=== PATIENT | female | born 1970 | race Caucasian/White ===

== ENCOUNTER 2019-11-12 17:47 | Emergency (ER) | payer SELFPAY ==
[~2019-11-12] VITALS: Ht 165.1 cm; Wt 45.4 kg
[~2019-11-12 17:47] MED LIST: ALPR0.5T PO; ONDA8TAB9 PO; OXYC-325 PO
[2019-11-12 17:58] VITALS: BP 137/76
[2019-11-12] MEDS ORDERED: LIDOCAINE 2% 20 ML VIAL. IJ STA (18:30)
--- NOTE | 2019-11-12 18:36 | PHYS DOC ---
Past Medical History Past Medical History: Anxiety, GERD, Pancreatitis (SELINA THOMPSON APRN) Past Surgical History: Tubal ligation, Other Additional Past Surgical Histo: RHINOPLASTY (SELINA THOMPSON APRN) Alcohol Use: Heavy Drug Use: None (SELINA THOMPSON APRN) Attending Signature I have participated in the care of this patient and I have reviewed and agree with all pertinent clinical information above including history, exam, and recommendations. (CATALINA KITCHEN MD) Adult General Chief Complaint Chief Complaint: LACERATION/AVULSION HPI HPI Patient is a 49 year old female who presents with a laceration to the right web by the first digit. She states that this happened around 2 hours ago. The patient was not really sure that time. She states her last tetanus shot was 10 years ago. She states she was cutting potatoes and sliced her hand. (SELINA THOMPSON APRN) Review of Systems Review of Systems Constitutional: Denies fever or chills [] Eyes: Denies change in visual acuity, redness, or eye pain [] HENT: Denies nasal congestion or sore throat [] Respiratory: Denies cough or shortness of breath [] Cardiovascular: No additional information not addressed in HPI [] GI: Denies abdominal pain, nausea, vomiting, bloody stools or diarrhea [] : Denies dysuria or hematuria [] Musculoskeletal: Denies back pain or joint pain [] Integument: Laceration to the Right hand. Neurologic: Denies headache, focal weakness or sensory changes [] Endocrine: Denies polyuria or polydipsia [] Complete systems were reviewed and found to be within normal limits, except as documented in this note. (SELINA THOMSPON APRN) Current Medications Current Medications Current Medications Medications (Trade) Dose Ordered Sig/Alverto Start Time Stop Time Status Last Admin Dose Admin Diphtheria/ Tetanus/Acell Pertussis (Boostrix) 0.5 ml ONCE ONCE 11/12/19 19:15 11/12/19 19:16 DC 11/12/19 19:37 0.5 ML Lidocaine HCl 20 ml 1X STAT 11/12/19 18:30 11/12/19 18:34 DC 11/12/19 18:30 20 ML Neomycin/ Polymyxin/ Bacitracin (Triple Antibiotic Ointment) 1 pkt 1X ONCE 11/12/19 18:45 11/12/19 18:46 DC 11/12/19 18:45 1 PKT (CATALINA KITCHEN MD) Allergies Allergies Allergies Coded Allergies Type Severity Reaction Last Updated Verified Iodinated Contrast Media Allergy Severe 10/08/19 Yes Sulfa (Sulfonamide Antibiotics) Allergy Intermediate 10/08/19 Yes erythromycin base Allergy Intermediate 10/08/19 Yes tramadol Allergy Intermediate 11/13/19 Yes (CATALINA KITCHEN MD) Physical Exam Physical Exam Constitutional: Well developed, well nourished, no acute distress, non-toxic appearance. [] HENT: Normocephalic, atraumatic, bilateral external ears normal, oropharynx moist, no oral exudates, nose normal. [] Eyes: PERRLA, EOMI, conjunctiva normal, no discharge. [] Skin: Laceration to the the web between the 1st and 2nd digits of the hand. 2 cm in size. Neurologic: Alert and oriented X 3, normal motor function, normal sensory function, no focal deficits noted. [] Psychologic: Affect normal, judgement normal, mood normal. [] (SELINA THOMPSON APRN) Current Patient Data Vital Signs Vital Signs Date Time Temp Pulse Resp B/P (MAP) Pulse Ox O2 Delivery O2 Flow Rate FiO2 11/12/19 17:58 97.2 91 12 137/76 (96) 98 Room Air 97.2 (CATALINA KITCHEN MD) EKG EKG [] (SELINA THOMPSON APRN) Radiology/Procedures Radiology/Procedures Indication: Laceration to R dominguez between 1st and 2nd digit. Procedure: The patient was placed in the appropriate position and anesthesia around the 2% lidocaine. The area was then debrided with 210 mL of NS. The laceration was closed with 7, 4-0 Nylon sutures. The wound area was then dressed with dressing. Total repaired wound length: 2 cm The patient tolerated the procedure. Complications: none (SELINA THOMPSON APRN) Course & Med Decision Making Course & Med Decision Making Pertinent Labs and Imaging studies reviewed. (See chart for details) The patient has a laceration to the hand. Will order lidocaine and sew the wound. Will also give Tetanus. (SELINA THOMPSON APRN) Dragon Disclaimer Dragon Disclaimer This electronic medical record was generated, in whole or in part, using a voice recognition dictation system. (SELINA THOMPSON APRN) Departure Departure Impression: Primary Impression: Laceration Disposition: 01 HOME, SELF-CARE Condition: STABLE Referrals: UNKNOWN PCP NAME (PCP) Patient Instructions: Laceration Care, Adult Additional Instructions: Thank you for visiting [facility]. We appreciate you trusting us with your care. If any additional problems come up don't hesitate to return to visit us. Please follow up with your primary care provider so they can plan additional care if needed and know about the problem that you had. If symptoms worsen come back to the Emergency Department. Any concerning symptoms that start such as chest pain, shortness of air, weakness or numbness on one side of the body, running high fevers or any other concerning symptoms return to the ER. Please keep your wound dry, especially for the first 24 hours. After the first 24 hours you can wet the wound for a short time. Do not soak the wound or swim until the sutures have been removed. Please have the sutures removed in 7-10 days by your primary care doctor or return to ER for removal. Please keep the w ound clean and change your bandage at least twice per day. You can use Neosporin on the wound to help reduce the chance of infection. If you notice signs of infection such as drainage from the wound (Pus), redness, increased pain or swelling return to ER for treatment. SELINA THOMPSON APRN Nov 12, 2019 18:36 CATALINA KITCHEN MD Nov 14, 2019 02:50
[2019-11-12] MEDS ORDERED: NEOMY/BACITR/POLYMYXIN OINT PACKET. TP ONE (18:45)
[2019-11-12] MEDS ORDERED: DIPHTH,PERTUSS(ACELL),TET TOX 0.5 ML DISP.SYRIN. VAX IM ONE (19:15)
[2019-11-13] MEDS ORDERED: ACET-704 PO (09:04)
[2019-11-13] MEDS ORDERED: VENTOLIN HFA18 GM INH (09:20)
== END 2019-11-12 20:14 | disposition home or self-care (01) ==
LOC: ER 17:47
DX: S61.411A Laceration without foreign body of right hand, initial encounter (principal); F41.9 Anxiety disorder, unspecified; K21.9 Gastro-esophageal reflux disease without esophagitis; Z98.51 Tubal ligation status; F10.10 Alcohol abuse, uncomplicated; Z98.890 Other specified postprocedural states; Z88.2 Allergy status to sulfonamides; Z91.041 Radiographic dye allergy status; Z88.1 Allergy status to other antibiotic agents; Z88.6 Allergy status to analgesic agent; W27.8XXA Contact with other nonpowered hand tool, initial encounter; Y93.G9 Activity, other involving cooking and grilling; Y92.89 Other specified places as the place of occurrence of the external cause; Y99.8 Other external cause status
CPT/HCPCS: 12001; 90471; 90715; 99283; J2001

== ENCOUNTER 2019-11-13 07:23 | Emergency (ER) | payer SELFPAY ==
[~2019-11-13] VITALS: Ht 165.1 cm; Wt 46.9 kg
[2019-11-13] MEDS ORDERED: HYDROcodone/APAP 5/325MG 1 TAB TABLET PO ONE (08:45)
[2019-11-13 09:00] VITALS: BP 121/80
[2019-11-13] MEDS ORDERED: ACET-704 PO (09:04)
--- NOTE | 2019-11-13 09:04 | PHYS DOC ---
Past Medical History Past Medical History: Anxiety, GERD, Pancreatitis Past Surgical History: Tubal ligation, Other Additional Past Surgical Histo: RHINOPLASTY Alcohol Use: Heavy Drug Use: None Adult General Chief Complaint Chief Complaint: ASTHMA HPI HPI Patient is a 49 year old female patient with history of anxiety and GERD who presents with complaint of shortness of breath and hand pain. Patient was seen in this emergency room stay Kristopher laceration repair of left hand and states she has had pain in her hand and rated her pain as a severe pain and states she did not have prescription of pain medication. Patient also complaining of shortness of breath since 3 am today and states she ran out of her inhaler for one month and needs prescription of inhaler. Patient denies fever and chills, chest pain, sick contact. Review of Systems Review of Systems Constitutional: Denies fever or chills [] Eyes: Denies change in visual acuity, redness, or eye pain [] HENT: Denies nasal congestion or sore throat [] Respiratory: Denies cough reports shortness of breath [] Cardiovascular: No additional information not addressed in HPI [] GI: Denies abdominal pain, nausea, vomiting, bloody stools or diarrhea [] : Denies dysuria or hematuria [] Musculoskeletal: Denies back pain, reports joint pain [] Integument: Denies rash or skin lesions [] Neurologic: Denies headache, focal weakness or sensory changes [] Endocrine: Denies polyuria or polydipsia [] All other systems were reviewed and found to be within normal limits, except as documented in this note. Current Medications Current Medications Current Medications Medications (Trade) Dose Ordered Sig/[facility] Start Time Stop Time Status Last Admin Dose Admin Acetaminophen/ Hydrocodone Bitart (Lortab 5/325) 1 tab 1X ONCE 11/13/19 08:45 11/13/19 09:13 DC 11/13/19 09:07 1 TAB Allergies Allergies Allergies Coded Allergies Type Severity Reaction Last Updated Verified Iodinated Contrast Media Allergy Severe 10/08/19 Yes Sulfa (Sulfonamide Antibiotics) Allergy Intermediate 10/08/19 Yes erythromycin base Allergy Intermediate 10/08/19 Yes tramadol Allergy Intermediate 11/13/19 Yes Physical Exam Physical Exam Constitutional: Well developed, well nourished, mild distress, non-toxic appearance, anxious. [] HENT: Normocephalic, atraumatic. Eyes: PERRLA, EOMI, conjunctiva normal, no discharge. [] Neck: Normal range of motion, no tenderness, supple, no stridor. [] Cardiovascular:Heart rate regular rhythm, no murmur [] Lungs & Thorax: Bilateral breath sounds clear to auscultation [] Extremities: Left hand with suture placement in between first and second fingers web without sign of infection or discharge or tenderness. Neurologic: Alert and oriented X 3, no focal deficits noted. [] Psychologic: Affect anxious, judgement normal, mood normal. [] Current Patient Data Vital Signs Vital Signs Date Time Temp Pulse Resp B/P (MAP) Pulse Ox O2 Delivery O2 Flow Rate FiO2 11/13/19 09:07 20 95 Room Air 11/13/19 07:57 97.8 79 125/77 (93) 97.8 EKG EKG [] Radiology/Procedures Radiology/Procedures [] Course & Med Decision Making Course & Med Decision Making discharge: I've spoken with the patient and/or caregivers. I've explained the patient's condition, diagnosis and treatment plan based on information available to me at this time. I've answered the patient's and/or caregivers questions and addressed any concerns. The patient and/or caregivers have a good understanding the patient's diagnosis, condition and treatment plan as can be expected at this point. Vital signs have been stabilized. The patient's condition is stable for discharge from the emergency department. The patient will pursue further outpatient evaluation with her primary care provider or other designated consulting physician as outlined in the discharge instructions. Patient and/or caregivers are agreeable to this plan of care and follow-up instructions have been explained in detail. The patient and/or caregivers have received these instructions in written format and expressed understanding of these discharge instructions. The patient and her caregivers are aware that if any significant change in condition or worsening of symptoms should prompt him to immediately return to this of the closest emergency department. If an emergent department is not readily available I would encourage him to call 911. Anthony Disclaimer Anthony Disclaimer This electronic medical record was generated, in whole or in part, using a voice recognition dictation system. Departure Departure Impression: Primary Impression: Medication refill Additional Impressions: Asthma Pain from laceration Disposition: HOME, SELF-CARE (at 0902) Condition: IMPROVED Referrals: NO PCP (PCP) Patient Instructions: Medication Refill, Emergency Department, Sutured Wound Care Additional Instructions: Keep wound clean and dry Follow-up with your primary care physician in 3-5 days Return to ER if not getting better Thank you for visiting [facility]. We appreciate you trusting us with your care. If any additional problems come up don't hesitate to return to visit us. Please follow up with your primary care provider so they can plan additional care if needed and know about the problem that you had. If symptoms worsen come back to the Emergency Department. Any concerning symptoms that start such as chest pain, shortness of air, weakness or numbness on one side of the body, running high fevers or any other concerning symptoms return to the ER. Scripts Albuterol Sulfate (VENTOLIN HFA INHALER) 18 Gm Hfa.aer.ad 2 PUFF INH QID for FOR ASTHMA, #1 INHALER 0 Refills Prov: ANDREW CHRISTENSEN MD 11/13/19 Acetaminophen With Codeine (TYLENOL WITH CODEINE #3 TABLET) 1 Each Tablet 1 TAB PO PRN Q6HRS PRN for PAIN, #10 TAB Prov: ANDREW CHRISTENSEN MD 11/13/19 Problem Qualifiers Additional Impressions: Asthma Asthma severity: mild Asthma persistence: unspecified Asthma complication type: uncomplicated Qualified Codes: J45.909 - Unspecified asthma, uncomplicated ANDREW CHRISTENSEN MD Nov 13, 2019 09:04
[2019-11-13] MEDS ORDERED: VENTOLIN HFA18 GM INH (09:20)
== END 2019-11-13 09:16 | disposition home or self-care (01) ==
LOC: ER 07:23
DX: J45.909 Unspecified asthma, uncomplicated (principal); M79.602 Pain in left arm; Z76.0 Encounter for issue of repeat prescription; K21.9 Gastro-esophageal reflux disease without esophagitis; Z88.1 Allergy status to other antibiotic agents; Z88.2 Allergy status to sulfonamides; Z91.041 Radiographic dye allergy status; Z88.6 Allergy status to analgesic agent
CPT/HCPCS: 99283

== ENCOUNTER 2020-01-08 13:20 | Emergency (ER) | payer SELFPAY ==
[~2020-01-08] VITALS: Ht 172.7 cm; Wt 46.8 kg
[~2020-01-08 13:20] MED LIST changes: +ACET-704 PO; +VENTOLIN HFA18 GM INH
--- NOTE | 2020-01-08 13:50 | PHYS DOC ---
Past Medical History Past Medical History: Anxiety, GERD, Pancreatitis Past Surgical History: Tubal ligation, Other Additional Past Surgical Histo: RHINOPLASTY Smoking Status: Current Every Day Smoker Alcohol Use: Heavy Drug Use: None Adult General Chief Complaint Chief Complaint: COUGH HPI HPI Patient is a 49 year old female with reported history of atrial fibrillation an d chronic pancreatitis presents secondary to complaint of cough and right-sided chest pain that is worse with inspiration for the past 2 days. Reported temperature at home of 101.5. She is afebrile in the emergency department. No medications taken prior to arrival. Multiple sick contacts at home with similar symptoms and her boyfriend was recently hospitalized yesterday with pneumonia. No overseas travel recently. Review of Systems Review of Systems All other ROS is negative unless otherwise stated in HPI Current Medications Current Medications Current Medications Medications (Trade) Dose Ordered Sig/Alverto Start Time Stop Time Status Last Admin Dose Admin Ketorolac Tromethamine (Toradol Im) 30 mg 1X ONCE 01/08/20 14:30 01/08/20 14:31 DC 01/08/20 14:22 30 MG Levofloxacin (Levaquin) 750 mg 1X ONCE 01/08/20 15:00 01/08/20 15:01 UNV Sodium Chloride 1,000 ml @ 1,000 mls/hr 1X ONCE 01/08/20 14:00 01/08/20 14:59 01/08/20 14:14 1,000 MLS/HR Allergies Allergies Allergies Coded Allergies Type Severity Reaction Last Updated Verified Iodinated Contrast Media Allergy Severe 10/08/19 Yes Sulfa (Sulfonamide Antibiotics) Allergy Intermediate 10/08/19 Yes erythromycin base Allergy Intermediate 10/08/19 Yes tramadol Allergy Intermediate 11/13/19 Yes Physical Exam Physical Exam See above Constitutional: Well developed, well nourished, no acute distress, non-toxic appearance. [] HENT: Normocephalic, atraumatic, bilateral external ears normal, oropharynx moist, no oral exudates, nose normal. [] Eyes: PERRLA, EOMI, conjunctiva normal, no discharge. [] Neck: Normal range of motion, no tenderness, supple, no stridor. [] Cardiovascular:Heart rate regular rhythm, no murmur [] Lungs & Thorax: Bilateral breath sounds clear to auscultation some reproducible tenderness to palpation of the right anterior chest wall. Abdomen: Bowel sounds normal, soft, no tenderness, no masses, no pulsatile masses. [] Skin: Warm, dry, no erythema, no rash. [] Back: No tenderness, no CVA tenderness. [] Extremities: No tenderness, no cyanosis, no clubbing, ROM intact, no edema. [] Neurologic: Alert and oriented X 3, normal motor function, normal sensory function, no focal deficits noted. [] Psychologic: Affect normal, judgement normal, mood normal. [] Current Patient Data Vital Signs Vital Signs Date Time Temp Pulse Resp B/P (MAP) Pulse Ox O2 Delivery O2 Flow Rate FiO2 01/08/20 13:33 97.8 89 22 146/85 (105) 100 Room Air 97.8 Lab Values Laboratory Tests Test 01/08/20 13:40 White Blood Count 12.2 x10^3/uL (4.0-11.0) H Red Blood Count 3.82 x10^6/uL (3.50-5.40) Hemoglobin 12.9 g/dL (12.0-15.5) Hematocrit 38.7 % (36.0-47.0) Mean Corpuscular Volume 101 fL (79-100) H Mean Corpuscular Hemoglobin 34 pg (25-35) Mean Corpuscular Hemoglobin Concent 33 g/dL (31-37) Red Cell Distribution Width 13.9 % (11.5-14.5) Platelet Count 165 x10^3/uL (140-400) Neutrophils (%) (Auto) 80 % (31-73) H Lymphocytes (%) (Auto) 5 % (24-48) L Monocytes (%) (Auto) 14 % (0-9) H Eosinophils (%) (Auto) 0 % (0-3) Basophils (%) (Auto) 1 % (0-3) Neutrophils # (Auto) 9.8 x10^3/uL (1.8-7.7) H Lymphocytes # (Auto) 0.6 x10^3/uL (1.0-4.8) L Monocytes # (Auto) 1.8 x10^3/uL (0.0-1.1) H Eosinophils # (Auto) 0.0 x10^3/uL (0.0-0.7) Basophils # (Auto) 0.1 x10^3/uL (0.0-0.2) Sodium Level 132 mmol/L (136-145) L Potassium Level 3.6 mmol/L (3.5-5.1) Chloride Level 95 mmol/L (98-107) L Carbon Dioxide Level 28 mmol/L (21-32) Anion Gap 9 (6-14) Blood Urea Nitrogen 13 mg/dL (7-20) Creatinine 0.7 mg/dL (0.6-1.0) Estimated GFR (Cockcroft-Gault) 88.2 BUN/Creatinine Ratio 19 (6-20) Glucose Level 105 mg/dL (70-99) H Calcium Level 9.1 mg/dL (8.5-10.1) Total Bilirubin 1.3 mg/dL (0.2-1.0) H Aspartate Amino Transferase (AST) 57 U/L (15-37) H Alanine Aminotransferase (ALT) 26 U/L (14-59) Alkaline Phosphatase 168 U/L (46-116) H Troponin I Quantitative < 0.017 ng/mL (0.000-0.055) Total Protein 7.3 g/dL (6.4-8.2) Albumin 3.1 g/dL (3.4-5.0) L Albumin/Globulin Ratio 0.7 (1.0-1.7) L Lipase 32 U/L (73-393) L Influenza Type A Antigen Negative (NEGATIVE) Influenza Type B Antigen Negative (NEGATIVE) Laboratory Tests 01/08/20 13:40 Laboratory Tests 01/08/20 13:40 EKG EKG []Normal sinus rhythm without ST changes and normal intervals. Radiology/Procedures Radiology/Procedures CHEST PA LATERAL History: Chest pain Comparison: October 08, 2019 Findings: Right middle lobe consolidation. Small right pleural effusion. Normal heart size. Calcified left midlung granuloma, unchanged no pneumothorax. Impression: 1. Right middle lobe pneumonia. Recommend follow-up to ensure resolution. 2. Small right pleural effusion. [] Course & Med Decision Making Course & Med Decision Making Pertinent Labs and Imaging studies reviewed. (See chart for details) Patient Is seen for cough and right-sided chest pain. Her EKG is unremarkable. We will obtain chest x-ray and labs. I suspect she likely has either influenza or pneumonia or bronchitis. 1441: Patient's records complete and does reveal a right sided pneumonia. She has a small leukocytosis. The rest of her labs are stable. We'll start her on antibiotics and the patient is instructed to follow-up with her primary care physician next week for reevaluation. Anthony Disclaimer Anthony Disclaimer This electronic medical record was generated, in whole or in part, using a voice recognition dictation system. Departure Departure Impression: Primary Impression: Community acquired bacterial pneumonia Disposition: HOME, SELF-CARE Condition: STABLE Referrals: NO PCP (PCP) Patient Instructions: Pneumonia, Adult Additional Instructions: Please establish care with a physician from the list provided and follow-up within 1-2 weeks for reevaluation and resolution of pneumonia. Please take all of your antibiotic as prescribed. Scripts Hydrocodone/Apap 5-325 (NORCO 5-325 TABLET) 1 Each Tablet 1 TAB PO PRN Q6HRS PRN for PAIN, #10 TAB 0 Refills Prov: NICOLASA BYRD DO 01/08/20 Levofloxacin (LEVAQUIN) 750 Mg Tablet 1 TAB PO DAILY for 10 Days, #10 TAB 0 Refills Prov: NICOLASA BYRD DO 01/08/20 NICOLASA BYRD DO Jan 08, 2020 13:50
[2020-01-08 13:55] LABS: BASO # 0.1 x10^3/uL (0.0-0.2); BASO % 1 % (0-3); EOS % 0 % (0-3); HEMATOCRIT 38.7 % (36.0-47.0); HEMOGLOBIN 12.9 g/dL (12.0-15.5); LYMPH # 0.6 x10^3/uL (1.0-4.8); LYMPH % 5 % (24-48); MEAN CORPUSCULAR HEMOGLOBIN 34 pg (25-35); MEAN CORPUSCULAR HGB CONC 33 g/dL (31-37); MEAN CORPUSCULAR VOLUME 101 fL (79-100); MONO # 1.8 x10^3/uL (0.0-1.1); MONO % 14 % (0-9); NEUT # 9.8 x10^3/uL (1.8-7.7); NEUT % 80 % (31-73); PLATELET COUNT 165 x10^3/uL (140-400); RED BLOOD COUNT 3.82 x10^6/uL (3.50-5.40); RED CELL DISTRIBUTION WIDTH 13.9 % (11.5-14.5); WHITE BLOOD COUNT 12.2 x10^3/uL (4.0-11.0)
[2020-01-08] MEDS ORDERED: IV NORMAL SALINE 1000ML BAG 1,000 ML IV ONE (14:00)
[2020-01-08 14:06] VITALS: BP 159/74
[2020-01-08 14:10] LABS: CALCIUM 9.1 mg/dL (8.5-10.1); CREATININE 0.7 mg/dL (0.6-1.0); GFR 88.2; POTASSIUM 3.6 mmol/L (3.5-5.1)
[2020-01-08 14:16] LABS: ALBUMIN 3.1 g/dL (3.4-5.0); ALBUMIN/GLOBULIN RATIO 0.7 (1.0-1.7); TOTAL BILIRUBIN 1.3 mg/dL (0.2-1.0); TOTAL PROTEIN 7.3 g/dL (6.4-8.2)
[2020-01-08 14:25] LABS: INFLUENZA A PATIENT NEGATIVE (NEGATIVE); INFLUENZA B PATIENT NEGATIVE (NEGATIVE)
--- NOTE | 2020-01-08 14:26 | RAD ---
CHEST PA LATERAL History: Chest pain Comparison: October 08, 2019 Findings: Right middle lobe consolidation. Small right pleural effusion. Normal heart size. Calcified left midlung granuloma, unchanged no pneumothorax. Impression: 1. Right middle lobe pneumonia. Recommend follow-up to ensure resolution. 2. Small right pleural effusion. Electronically signed by: Ulises Copeland DO (01/08/2020 2:23 PM) [id number]
--- NOTE | 2020-01-08 14:29 | EKG ---
[facility] [address] [place] [address] Test Date: 2020-01-08 Test Time: 13:43:30 Pat Name: HUMPHREY DE LA CRUZ Department: Room: Gender: F Data Mining Analyst: : 1970 Requested By: NICOLASA BYRD Order Number: [id number] Reading MD: Measurements Intervals [place] Rate: 89 P: 41 VA: 152 QRS: 19 QRSD: 74 T: 46 QT: 368 QTc: 454 Interpretive Statements SINUS RHYTHM NORMAL ECG RI6.01 No previous ECG available for comparison
[2020-01-08] MEDS ORDERED: KETOROLAC 60 MG/2 ML VIAL. IM ONE (14:30)
[2020-01-08] MEDS ORDERED: LEVO750T31 PO (14:54)
[2020-01-08] MEDS ORDERED: HYDR-3164 PO (14:54)
== END 2020-01-08 15:05 | disposition home or self-care (01) ==
LOC: ER 13:20
DX: J15.8 Pneumonia due to other specified bacteria (principal); R07.89 Other chest pain; R05 Cough; F41.9 Anxiety disorder, unspecified; K21.9 Gastro-esophageal reflux disease without esophagitis; K86.1 Other chronic pancreatitis; F10.10 Alcohol abuse, uncomplicated; F17.200 Nicotine dependence, unspecified, uncomplicated; Z98.51 Tubal ligation status; Z98.890 Other specified postprocedural states; Z91.041 Radiographic dye allergy status; Z88.2 Allergy status to sulfonamides; Z88.1 Allergy status to other antibiotic agents; Z88.6 Allergy status to analgesic agent
CPT/HCPCS: 36415; 71046; 80053; 83690; 84484; 85025; 87804; 93005; 96372; 99285; J1885; J7030

== ENCOUNTER 2020-07-04 23:29 | Inpatient (IN) | payer SELFPAY ==
[~2020-07-04] VITALS: Ht 165.1 cm; Wt 49.5 kg
[~2020-07-04 23:29] MED LIST changes: +FOLI0.8C PO; +HYDR-3164 PO; +LACT1CAP19 PO; +LEVO750T31 PO; +METO25TA4 PO; +Nicotine 21MG TD; +OMEP40CA45 PO; +THIA100T57 PO
[2020-07-05] MEDS ORDERED: IV NORMAL SALINE 1000ML BAG 1,000 ML IV ONE
--- NOTE | 2020-07-05 00:20 | RAD ---
INDICATION: Reason: TACHYCARDIA / Spl. Instructions: / History: COMPARISON: March 11, 2020 FINDINGS: Single view of chest obtained. Calcified granuloma left lung. No new region of consolidation. Cardiac silhouette is similar to prior. IMPRESSION: * No focal airspace consolidation or edema. Electronically signed by: Mikael Adkins MD (07/05/2020 12:17 AM) [id number]
--- NOTE | 2020-07-05 00:41 | RAD ---
INDICATION: Reason: SEIZURE / Spl. Instructions: / History: COMPARISON: None. TECHNIQUE: Axial CT images obtained through the head without intravenous contrast. One or more of the following individualized dose reduction techniques were utilized for this examination: 1. Automated exposure control; 2. Adjustment of the mA and/or kV according to patient size; 3. Use of iterative reconstruction technique. FINDINGS: No intracranial hemorrhage. No midline shift. Basal cisterns patents. Ventricles and sulci are globally prominent. No acute osseous abnormality. Orbits and paranasal sinuses unremarkable. Scattered foci of low attenuation within the white matter. IMPRESSION: 1. No acute intracranial hemorrhage. 2. Scattered regions of low attenuation within the white matter. Non-specific in nature but frequently secondary to chronic small vessel ischemic disease. 3. Prominence of ventricles and sulci which is frequently secondary to age related volume loss. Electronically signed by: Mikael Adkins MD (07/05/2020 12:38 AM) [id number]
[2020-07-05 01:00] LABS: BASO % 1 % (0-3); EOS % 0 % (0-3); HEMATOCRIT 37.6 % (36.0-47.0); HEMOGLOBIN 12.6 g/dL (12.0-15.5); LYMPH % 15 % (24-48); MEAN CORPUSCULAR HEMOGLOBIN 33 pg (25-35); MEAN CORPUSCULAR HGB CONC 33 g/dL (31-37); MEAN CORPUSCULAR VOLUME 98 fL (79-100); MONO # 0.9 x10^3/uL (0.0-1.1); MONO % 13 % (0-9); NEUT # 4.7 x10^3/uL (1.8-7.7); NEUT % 71 % (31-73); PLATELET COUNT 59 x10^3/uL (140-400); RED BLOOD COUNT 3.85 x10^6/uL (3.50-5.40); RED CELL DISTRIBUTION WIDTH 14.6 % (11.5-14.5); WHITE BLOOD COUNT 6.6 x10^3/uL (4.0-11.0)
[2020-07-05 01:01] LABS: BILIRUBIN,URINE NEGATIVE (NEG); CLARITY,URINE CLEAR; COLOR,URINE AMBER; NITRITE,URINE NEGATIVE (NEG); PH,URINE 7.5 (<5.0-8.0); PROTEIN,URINE 100 mg/dL (NEG-TRACE)
[2020-07-05 01:07] LABS: BARBITURATES NEG (NEG); BENZODIAZEPINES POS (NEG); CANNABINOIDS NEG (NEG); COCAINE NEG (NEG); METHADONE NEG (NEG); OPIATES POS (NEG); PHENCYCLIDINE NEG (NEG)
[2020-07-05 01:08] LABS: CALCIUM 8.6 mg/dL (8.5-10.1); CREATININE 0.9 mg/dL (0.6-1.0); POTASSIUM 3.2 mmol/L (3.5-5.1)
[2020-07-05 01:09] LABS: PROTHROMBIN TIME PATIENT 13.1 SEC (11.7-14.0)
[2020-07-05 01:09] LABS: BACTERIA,URINE FEW /HPF (0-FEW); HYALINE CASTS, URINE FEW /HPF; SQUAMOUS EPITHELIAL CELL,UR MOD /LPF
[2020-07-05 01:12] LABS: AMPHETAMINE/METHAMPHETAMINE NEG (NEG)
[2020-07-05 01:13] LABS: ALBUMIN 3.7 g/dL (3.4-5.0); ALBUMIN/GLOBULIN RATIO 0.9 (1.0-1.7); TOTAL BILIRUBIN 2.9 mg/dL (0.2-1.0)
--- NOTE | 2020-07-05 01:25 | PHYS DOC ---
Past Medical History Past Medical History: Alcoholism, Anxiety, GERD, Pancreatitis Past Surgical History: Tubal ligation, Other Additional Past Surgical Histo: RHINOPLASTY Smoking Status: Current Every Day Smoker Alcohol Use: Heavy Drug Use: None General Adult EDM: Chief Complaint: SEIZURE HPI: HPI: Patient is a 49 year old female who presents with seizure. Patient is a daily drinker who reports that for the last 2 days she has been unable to drink any alcohol or even eat anything because of pain in her stomach. She describes the pain as a burning sensation that is nonradiating. It mostly is in the epigastrium, waxes and wanes, worse with alcohol and not associated with melena or hematochezia. Patient reports she has had nausea and vomiting with clear emesis, diarrhea with 2 watery green stools today. Patient reports no history of seizures in the past other than that associated with some dye she was given for CAT scan years ago. Patient currently denies chest pain or shortness of breath he does not feel well. Patient lost control of her urine, bowels but did not bite her tongue during this episode. The amount of time was about 2 minutes and it was generalized tonic-clonic in nature. Review of Systems: Review of Systems: Constitutional: Denies fever or chills. [] Eyes: Denies change in visual acuity. [] HENT: Denies nasal congestion or sore throat. [] Respiratory: Denies cough or shortness of breath. [] Cardiovascular: Denies chest pain or edema. [] GI: See HPI. [] : Denies dysuria. [] Musculoskeletal: Denies back pain or joint pain. [] Integument: Denies rash. [] Neurologic: Denies headache, focal weakness or sensory changes. [] Endocrine: Denies polyuria or polydipsia. [] Lymphatic: Denies swollen glands. [] Psychiatric: Denies depression or anxiety. [] Heart Score: Risk Factors: Risk Factors: DM, Current or recent (<one month) smoker, HTN, HLP, family history of CAD, obesity. Risk Scores: Score 0 - 3: 2.5% MACE over next 6 weeks - Discharge Home Score 4 - 6: 20.3% MACE over next 6 weeks - Admit for Clinical Observation Score 7 - 10: 72.7% MACE over next 6 weeks - Early Invasive Strategies Current Medications: Current Medications Medications (Trade) Dose Ordered Sig/Alverto Start Time Stop Time Status Last Admin Dose Admin Lorazepam (Ativan Inj) 2 mg STK-MED ONCE 07/05/20 01:18 07/05/20 01:18 DC Sodium Chloride 1,000 ml @ 1,000 mls/hr 1X ONCE 07/05/20 00:00 07/05/20 00:59 DC 07/05/20 00:28 1,000 MLS/HR Allergies: Allergies: Allergies Coded Allergies Type Severity Reaction Last Updated Verified Iodinated Contrast Media Allergy Severe 10/08/19 Yes Sulfa (Sulfonamide Antibiotics) Allergy Intermediate 10/08/19 Yes erythromycin base Allergy Intermediate 10/08/19 Yes tramadol Allergy Intermediate 11/13/19 Yes Physical Exam: PE: Constitutional: Well developed, cachectic, no acute distress, non-toxic appearance. [] HENT: Normocephalic, atraumatic, bilateral external ears normal, oropharynx moist, no oral exudates, nose normal. [] Eyes: PERRLA, EOMI, conjunctiva normal, no discharge. [] Neck: Normal range of motion, no tenderness, supple, no stridor. [] Cardiovascular: Regular rhythm, tachycardic, no S3 or S4, no murmur [] Lungs & Thorax: Bilateral breath sounds clear to auscultation [] Abdomen: Soft, positive bowel sounds, hypoactive, epigastric tenderness, no guarding or rebound, no hepatosplenomegaly, negative Rubi sign. [] Skin: Warm, dry, no erythema, no rash. [] Back: No tenderness, no CVA tenderness. [] Extremities: No tenderness, no cyanosis, no clubbing, ROM intact, no edema. [] Neurologic: Alert and oriented X 3, normal motor function, normal sensory function, no focal deficits noted. [] Psychologic: Affect flat, judgement normal, mood anxious. [] Current Patient Data: Labs: Laboratory Tests Test 07/05/20 00:38 07/05/20 00:52 White Blood Count 6.6 x10^3/uL (4.0-11.0) Red Blood Count 3.85 x10^6/uL (3.50-5.40) Hemoglobin 12.6 g/dL (12.0-15.5) Hematocrit 37.6 % (36.0-47.0) Mean Corpuscular Volume 98 fL (79-100) Mean Corpuscular Hemoglobin 33 pg (25-35) Mean Corpuscular Hemoglobin Concent 33 g/dL (31-37) Red Cell Distribution Width 14.6 % (11.5-14.5) H Platelet Count 59 x10^3/uL (140-400) L Neutrophils (%) (Auto) 71 % (31-73) Lymphocytes (%) (Auto) 15 % (24-48) L Monocytes (%) (Auto) 13 % (0-9) H Eosinophils (%) (Auto) 0 % (0-3) Basophils (%) (Auto) 1 % (0-3) Neutrophils # (Auto) 4.7 x10^3/uL (1.8-7.7) Lymphocytes # (Auto) 1.0 x10^3/uL (1.0-4.8) Monocytes # (Auto) 0.9 x10^3/uL (0.0-1.1) Eosinophils # (Auto) 0.0 x10^3/uL (0.0-0.7) Basophils # (Auto) 0.0 x10^3/uL (0.0-0.2) Prothrombin Time 13.1 SEC (11.7-14.0) Prothrombin Time INR 1.0 (0.8-1.1) Activated Partial Thromboplast Time 27 SEC (24-38) Sodium Level 136 mmol/L (136-145) Potassium Level 3.2 mmol/L (3.5-5.1) L Chloride Level 96 mmol/L (98-107) L Carbon Dioxide Level 31 mmol/L (21-32) Anion Gap 9 (6-14) Blood Urea Nitrogen 6 mg/dL (7-20) L Creatinine 0.9 mg/dL (0.6-1.0) Estimated GFR (Cockcroft-Gault) 66.0 BUN/Creatinine Ratio 7 (6-20) Glucose Level 116 mg/dL (70-99) H Lactic Acid Level 3.6 mmol/L (0.4-2.0) H Calcium Level 8.6 mg/dL (8.5-10.1) Total Bilirubin 2.9 mg/dL (0.2-1.0) H Aspartate Amino Transferase (AST) 91 U/L (15-37) H Alanine Aminotransferase (ALT) 20 U/L (14-59) Alkaline Phosphatase 112 U/L (46-116) Total Protein 8.0 g/dL (6.4-8.2) Albumin 3.7 g/dL (3.4-5.0) Albumin/Globulin Ratio 0.9 (1.0-1.7) L Ethyl Alcohol Level < 10 mg/dL (0-10) Urine Collection Type Unknown Urine Color Sandie Urine Clarity Clear Urine pH 7.5 (<5.0-8.0) Urine Specific [place] 1.015 (1.000-1.030) Urine Protein 100 mg/dL (NEG-TRACE) Urine Glucose (UA) 100 mg/dL (NEG) Urine Ketones (Stick) Trace mg/dL (NEG) Urine Blood Small (NEG) Urine Nitrite Negative (NEG) Urine Bilirubin Negative (NEG) Urine Urobilinogen Dipstick 1.0 mg/dL (0.2 mg/dL) Urine Leukocyte Esterase Negative (NEG) Urine RBC 6-10 /HPF (0-2) Urine WBC 1-4 /HPF (0-4) Urine Squamous Epithelial Cells Mod /LPF Urine Bacteria Few /HPF (0-FEW) Urine Hyaline Casts Few /HPF Urine Mucus Mod /LPF Urine Opiates Screen Pos (NEG) Urine Methadone Screen Neg (NEG) Urine Barbiturates Neg (NEG) Urine Phencyclidine Screen Neg (NEG) Urine Amphetamine/Methamphetamine Neg (NEG) Urine Benzodiazepines Screen Pos (NEG) Urine Cocaine Screen Neg (NEG) Urine Cannabinoids Screen Neg (NEG) Urine Ethyl Alcohol Neg (NEG) Laboratory Tests 07/05/20 00:38 Laboratory Tests 07/05/20 00:38 Vital Signs: Vital Signs Date Time Temp Pulse Resp B/P (MAP) Pulse Ox O2 Delivery O2 Flow Rate FiO2 07/05/20 00:52 155 20 100 07/04/20 23:34 98.1 166/114 (131) Room Air 98.1 EKG: EKG: Heart rate 149 bpm, sinus tachycardia, right atrial enlargement, nonspecific ST T wave changes most likely secondary to rate, abnormal ECG [] Radiology/Procedures: Radiology/Procedures: [] Course & Med Decision Making: Course & Med Decision Making Pertinent Labs and Imaging studies reviewed. (See chart for details) 0244-patient was seen and reevaluated. Patient reports that her abdominal pain is much improved after the GI cocktail. Her lipase is normal. I think she is stable for admission to the hospital at this time. [] Lizzetteon Disclaimer: Dragezra Disclaimer: This electronic medical record was generated, in whole or in part, using a voice recognition dictation system. Departure Departure Impression: Primary Impression: Дмитрий canales Additional Impressions: Alcohol related seizure Alcoholic gastritis Qualified Codes: K29.20 - Alcoholic gastritis without bleeding Dehydration Referrals: NO PCP (PCP) Justicifation of Admission Dx: Justifications for Admission: Justification of Admission Dx: Yes Comments: VALERIE Dunlap MD Jul 05, 2020 01:25
[2020-07-05] MEDS ORDERED: FAMOTIDINE 20 MG TABLET. PO ONE (02:00)
[2020-07-05] MEDS ORDERED: MAG HYDROX/ALUMINUM HYD/SIMETH 30 ML ORAL.SUSP PO ONE (02:00)
[2020-07-05] MEDS ORDERED: chlordiazePOXIDE HCL 25 MG CAPSULE PO SCH (03:00)
[2020-07-05 04:34] VITALS: BP 155/107
[2020-07-05 07:00] VITALS: BP 143/97
--- NOTE | 2020-07-05 07:14 | EKG ---
[facility] [address] [place] [address] Test Date: 2020-07-04 Test Time: 23:43:05 Pat Name: HUMPHREY DE LA CRUZ Department: Room: Gender: F [employer] Machine Operator: : [id number] Requested By: VALERIE CHENG Order Number: [id number] Reading MD: Measurements Intervals [place] Rate: 149 P: 81 CO: 74 QRS: 47 QRSD: 76 T: -81 QT: 318 QTc: 505 Interpretive Statements SINUS TACHYCARDIA RIGHT ATRIAL ENLARGEMENT ST & T ABNORMALITY, CONSIDER ANTERIOR ISCHEMIA OR LEFT VENTRICULAR STRAIN INFEROLATERAL ISCHEMIA OR LEFT VENTRICULAR STRAIN ABNORMAL ECG RI6.02 No previous ECG available for comparison
[2020-07-05] MEDS ORDERED: ONDANSETRON PF 4 MG/2 ML VIAL. IVP PRN (08:45)
[2020-07-05] MEDS ORDERED: ACETAMINOPHEN 325 MG TABLET. PO PRN (08:45)
[2020-07-05] MEDS ORDERED: diphenhydrAMINE 50 MG/ML VIAL IVP PRN (08:45)
[2020-07-05] MEDS ORDERED: cloNIDine HCL 0.1 MG TABLET PO PRN (08:45)
[2020-07-05] MEDS ORDERED: HALOPERIDOL LACTATE 5 MG/ML VIAL. IVP PRN (08:45)
--- NOTE | 2020-07-05 08:48 | PDOC1 ---
History and Physical Date of Admission Date of Admission DATE: 07/05/20 TIME: 08:48 Identification/Chief Complaint Chief Complaint Diarrhea Source Source: Patient History of Present Illness History of Present Illness Ms Franco is a 49yo F w/ PMHx PSVT, COPD, anxiety, GERD, pancreatitis, anemia, ETOH abuse, smoker admitted through ED for seizure at home. Notes she has been eating out a lot lately and had some reheated food 3 days prior to ED presentation and had some nausea and vomiting diarrhea at that point and stopped drinking her normal half pint to a full pint of liquor per day and had been having some shaking and some visual hallucinations that she noted to her daughter. She was then noted with tonic-clonic seizure and loss of bladder function, no loss of bowel function. Brought in through ED with CT head negative for acute abnormality and chest x-ray clear EKG NSR. Labs significant for K of 3.2 lactate of 3.6 AST 91 bilirubin 2.9 platelets 59 urine drug screen positive for opioids and benzodiazepines ethanol level was 0. Due to her electrolyte abnormalities and new seizure she was admitted for further treatment. No previous EGD or colonoscopy - recommended to have done as outpt when we last saw. Anemia noted in 12/2019, though no iron or B12 deficiency. Viral Hep panel neg 12/2019. CT in 12/2019 noted scattered pancreatic calcifications. US in 12/2019 noted fatty liver and normal GB. Was evaluated by surgery then. Past Medical History Cardiovascular: No pertinent hx Pulmonary: COPD CENTRAL NERVOUS SYSTEM: Other GI: GERD Psych: Anxiety Rheumatologic: No pertinent hx Infectious disease: No pertinent hx Renal/: No pertinent hx Endocrine: No pertinent hx Past Surgical History Past Surgical History: Tubal Ligation, Other Family History Family History: High Cholestrol, Hypertension Social History Smoke: <1 pack per day ALCOHOL: heavy Drugs: None Current Problem List Problem List Problems Medical Problems: (1) Alcohol related seizure Status: Acute (2) Alcoholic gastritis Status: Acute (3) Dehydration Status: Acute (4) Delirium tremens Status: Acute Current Medications Current Medications Current Medications Sodium Chloride 1,000 ml @ 1,000 mls/hr 1X ONCE IV Last administered on 07/05/20at 00:28; Start 07/05/20 at 00:00; Stop 07/05/20 at 00:59; Status DC Lorazepam (Ativan Inj) 1 mg 1X ONCE IVP Last administered on 07/05/20at 01:24; Start 07/05/20 at 01:30; Stop 07/05/20 at 01:31; Status DC Lorazepam (Ativan Inj) 2 mg STK-MED ONCE .ROUTE ; Start 07/05/20 at 01:18; Stop 07/05/20 at 01:18; Status DC Al Hydroxide/Mg Hydroxide (Mylanta Plus Xs) 30 ml 1X ONCE PO Last administered on 07/05/20at 01:52; Start 07/05/20 at 02:00; Stop 07/05/20 at 02:01; Status DC Famotidine (Pepcid) 20 mg 1X ONCE PO Last administered on 07/05/20at 01:52; Start 07/05/20 at 02:00; Stop 07/05/20 at 02:01; Status DC Chlordiazepoxide (Librium) 25 mg Q6HRS PO Last administered on 07/05/20at 03:05; Start 07/05/20 at 03:00; Stop 07/05/20 at 08:40; Status DC Multivitamins 10 ml/Thiamine HCl 100 mg/Folic Acid 1 mg/Sodium Chloride 1,011.2 ml @ 100 mls/ hr DAILY IV ; Start 07/05/20 at 09:00; Stop 07/09/20 at 19:07 Lorazepam (Ativan) 2 mg PRN Q1HR PRN PO For CIWA 8-14; Start 07/05/20 at 08:45 Lorazepam (Ativan) 4 mg PRN Q1HR PRN PO For CIWA 15 or greater; Start 07/05/20 at 08:45 Lorazepam (Ativan Inj) 1 mg PRN Q1HR PRN IV For CIWA 8-14; Start 07/05/20 at 08:45 Lorazepam (Ativan Inj) 2 mg PRN Q1HR PRN IV For CIWA 15 or greater; Start 07/05/20 at 08:45 Haloperidol Lactate (Haldol Inj) 5 mg PRN Q4HRS PRN IVP Hallu cinatns,Confusn,Delirium; Start 07/05/20 at 08:45 Diphenhydramine HCl (Benadryl) 25 mg PRN Q15MIN PRN IVP EPS symptoms 2'Haldol admin; Start 07/05/20 at 08:45 Clonidine HCl (Catapres) 0.1 mg PRN Q1HR PRN PO SBP > 180 or DBP > 100, MRX3; Start 07/05/20 at 08:45 Ondansetron HCl (Zofran) 4 mg PRN Q4HRS PRN IVP NAUSEA/VOMITING; Start 07/05/20 at 08:45 Acetaminophen (Tylenol) 650 mg PRN Q6HRS PRN PO MILD PAIN / TEMP > 100.3'F; Start 07/05/20 at 08:45 Active Scripts Active Metoprolol Tartrate 25 Mg Tablet 25 Mg PO BID 30 Days [Nicotine 21MG] 1 PATCH Patch 1 Patch TD PRN DAILY PRN 30 Days Ventolin Hfa Inhaler (Albuterol Sulfate) 18 Gm Hfa.aer.ad 2 Puff INH QID Reported Xanax (Alprazolam) 0.5 Mg Tablet 1 Tab PO PRN PRN Omeprazole 40 Mg Capsule.dr 1 Cap PO DAILY Zofran (Ondansetron Hcl) 8 Mg Tablet 8 Mg PO BID PRN Allergies Allergies: Coded Allergies: Iodinated Contrast Media (Verified Allergy, Severe, 10/08/19) Sulfa (Sulfonamide Antibiotics) (Verified Allergy, Intermediate, 10/08/19) erythromycin base (Verified Allergy, Intermediate, 10/08/19) tramadol (Verified Allergy, Intermediate, 11/13/19) PERCOCET AND LORTAB OK ROS General: YES: Fatigue, Malaise, Appetite; No: Chills, Night Sweats, Other PSYCHOLOGICAL ROS: YES: Anxiety, Behavioral Disorder; No: Concentration difficultie, Decreased libido, Depression, Disorientation, Hallucinations, Hostility, Irritablity, Memory difficulties, Mood Swings, Obsessive thoughts, Physical abuse, Sexual abuse, Sleep disturbances, Suicidal ideation, Other Eyes: No Blurry vision, No Decreased vision, No Double vision, No Dry eyes, No Excessive tearing, No Eye Pain, No Itchy Eyes, No Loss of vision, No Photophobia, No Scotomata, No Uses contacts, No Uses glasses, No Other HEENT: No: Heacaches, Visual Changes, Hearing change, Nasal congestion, Nasal discharge, Oral lesions, Sinus pain, Sore Throat, Epistaxis, Sneezing, Snoring, Tinnitus, Vertigo, Vocal changes, Other ALLERGY AND IMMUNOLOGY: No: Hives, Insect Bite Sensitivity, Itchy/Watery Eyes, Nasal Congestion, Post Nasal Drip, Seasonal Allergies, Other Hematological and Lymphatic: No: Bleeding Problems, Blood Clots, Blood Transfusions, Brusing, Night Sweats, Pallor, Swollen Lymph Nodes, Other ENDOCRINE: No: Breast Changes, Galactorrhea, Hair Pattern Changes, Hot Flashes, Malaise/lethargy, Mood Swings, Palpitations, Polydipsia/polyuria, Skin Changes, Temperature Intolerance, Unexpected Weight Changes, Other Breast: No New/Changing Breast Lumps, No Nipple changes, No Nipple discharge, No Other Respiratory: No: Cough, Hemoptysis, Orthopnea, Pleuritic Pain, Shortness of breath, SOB with excertion, Sputum Changes, Stridor, Tachypnea, Wheezing, Other Cardiovascular: No Chest Pain, No Palpitations, No Orthopnea, No Paroxysmal Noc. Dyspnea, No Edema, No Lt Headedness, No Other Gastrointestinal: No Nausea, No Vomiting, No Abdominal Pain, No Diarrhea, No Constipation, No Melena, No Hematochezia, No Other Genitourinary: No Dysuria, No Frequency, No Incontinence, No Hematuria, No Retention, No Discharge, No Urgency, No Pain, No Flank Pain, No Other, No , No , No , No , No , No , No Musculoskeletal: No Gait Disturbance, No Joint Pain, No Joint Stiffness, No Karolina nt Swelling, No Muscle Pain, No Muscular Weakness, No Pain In:, No Swelling In:, No Other Neurological: No Behavorial Changes, No Bowel/Bladder ControlChng, No Confusion, No Dizziness, No Gait Disturbance, No Headaches, No Impaired Co ord/balance, No Memory Loss, No Numbness/Tingling, No Seizures, No Speech Problems, No Tremors, No Visual Changes, No Weakness, No Other Skin: No Dry Skin, No Eczema, No Hair Changes, No Lumps, No Mole Changes, No Mottling, No Nail Changes, No Pruritus, No Rash, No Skin Lesion Changes, No Other, No Acne Physical Exam General: Alert, Cooperative, mild distress HEENT: Atraumatic, PERRLA, EOMI, Mucous membr. moist/pink Lungs: Clear to auscultation, Normal air movement Heart: S1S2, RRR, no thrills, no rubs, no gallops, no murmurs Rectal Exam: not examined Extremities: No clubbing, No cyanosis, No edema, Normal pulses, No tenderness/swelling Skin: No rashes, No breakdown, No significant lesion Neuro: Normal speech, Strength at 5/5 X4 ext, Normal tone, Sensation intact, Cranial nerves 3-12 NL, Reflexes 2+ Psych/Mental Status: Mental status NL, Mood NL Vitals Vitals Vital Signs Date Time Temp Pulse Resp B/P (MAP) Pulse Ox O2 Delivery O2 Flow Rate FiO2 07/05/20 07:00 100.0 121 18 143/97 (112) 100 Room Air 100.0 Labs Labs Laboratory Tests Test 07/05/20 00:38 07/05/20 00:52 07/05/20 05:12 White Blood Count 6.6 x10^3/uL (4.0-11.0) Red Blood Count 3.85 x10^6/uL (3.50-5.40) Hemoglobin 12.6 g/dL (12.0-15.5) Hematocrit 37.6 % (36.0-47.0) Mean Corpuscular Volume 98 fL (79-100) Mean Corpuscular Hemoglobin 33 pg (25-35) Mean Corpuscular Hemoglobin Concent 33 g/dL (31-37) Red Cell Distribution Width 14.6 % (11.5-14.5) Platelet Count 59 x10^3/uL (140-400) Neutrophils (%) (Auto) 71 % (31-73) Lymphocytes (%) (Auto) 15 % (24-48) Monocytes (%) (Auto) 13 % (0-9) Eosinophils (%) (Auto) 0 % (0-3) Basophils (%) (Auto) 1 % (0-3) Neutrophils # (Auto) 4.7 x10^3/uL (1.8-7.7) Lymphocytes # (Auto) 1.0 x10^3/uL (1.0-4.8) Monocytes # (Auto) 0.9 x10^3/uL (0.0-1.1) Eosinophils # (Auto) 0.0 x10^3/uL (0.0-0.7) Basophils # (Auto) 0.0 x10^3/uL (0.0-0.2) Prothrombin Time 13.1 SEC (11.7-14.0) Prothromb Time International Ratio 1.0 (0.8-1.1) Activated Partial Thromboplast Time 27 SEC (24-38) Sodium Level 136 mmol/L (136-145) Potassium Level 3.2 mmol/L (3.5-5.1) Chloride Level 96 mmol/L (98-107) Carbon Dioxide Level 31 mmol/L (21-32) Anion Gap 9 (6-14) Blood Urea Nitrogen 6 mg/dL (7-20) Creatinine 0.9 mg/dL (0.6-1.0) Estimated GFR (Cockcroft-Gault) 66.0 BUN/Creatinine Ratio 7 (6-20) Glucose Level 116 mg/dL (70-99) Lactic Acid Level 3.6 mmol/L (0.4-2.0) 1.4 mmol/L (0.4-2.0) Calcium Level 8.6 mg/dL (8.5-10.1) Total Bilirubin 2.9 mg/dL (0.2-1.0) Aspartate Amino Transf (AST/SGOT) 91 U/L (15-37) Alanine Aminotransferase (ALT/SGPT) 20 U/L (14-59) Alkaline Phosphatase 112 U/L (46-116) Troponin I Quantitative < 0.017 ng/mL (0.000-0.055) Total Protein 8.0 g/dL (6.4-8.2) Albumin 3.7 g/dL (3.4-5.0) Albumin/Globulin Ratio 0.9 (1.0-1.7) Lipase 56 U/L (73-393) Ethyl Alcohol Level < 10 mg/dL (0-10) Urine Collection Type Unknown Urine Color Sandie Urine Clarity Clear Urine pH 7.5 (<5.0-8.0) Urine Specific [place] 1.015 (1.000-1.030) Urine Protein 100 mg/dL (NEG-TRACE) Urine Glucose (UA) 100 mg/dL (NEG) Urine Ketones (Stick) Trace mg/dL (NEG) Urine Blood Small (NEG) Urine Nitrite Negative (NEG) Urine Bilirubin Negative (NEG) Urine Urobilinogen Dipstick 1.0 mg/dL (0.2 mg/dL) Urine Leukocyte Esterase Negative (NEG) Urine RBC 6-10 /HPF (0-2) Urine WBC 1-4 /HPF (0-4) Urine Squamous Epithelial Cells Mod /LPF Urine Bacteria Few /HPF (0-FEW) Urine Hyaline Casts Few /HPF Urine Mucus Mod /LPF Urine Opiates Screen Pos (NEG) Urine Methadone Screen Neg (NEG) Urine Barbiturates Neg (NEG) Urine Phencyclidine Screen Neg (NEG) Urine Amphetamine/Methamphetamine Neg (NEG) Urine Benzodiazepines Screen Pos (NEG) Urine Cocaine Screen Neg (NEG) Urine Cannabinoids Screen Neg (NEG) Urine Ethyl Alcohol Neg (NEG) Laboratory Tests Test 07/05/20 00:38 07/05/20 00:52 07/05/20 05:12 White Blood Count 6.6 x10^3/uL (4.0-11.0) Red Blood Count 3.85 x10^6/uL (3.50-5.40) Hemoglobin 12.6 g/dL (12.0-15.5) Hematocrit 37.6 % (36.0-47.0) Mean Corpuscular Volume 98 fL (79-100) Mean Corpuscular Hemoglobin 33 pg (25-35) Mean Corpuscular Hemoglobin Concent 33 g/dL (31-37) Red Cell Distribution Width 14.6 % (11.5-14.5) Platelet Count 59 x10^3/uL (140-400) Neutrophils (%) (Auto) 71 % (31-73) Lymphocytes (%) (Auto) 15 % (24-48) Monocytes (%) (Auto) 13 % (0-9) Eosinophils (%) (Auto) 0 % (0-3) Basophils (%) (Auto) 1 % (0-3) Neutrophils # (Auto) 4.7 x10^3/uL (1.8-7.7) Lymphocytes # (Auto) 1.0 x10^3/uL (1.0-4.8) Monocytes # (Auto) 0.9 x10^3/uL (0.0-1.1) Eosinophils # (Auto) 0.0 x10^3/uL (0.0-0.7) Basophils # (Auto) 0.0 x10^3/uL (0.0-0.2) Prothrombin Time 13.1 SEC (11.7-14.0) Prothromb Time International Ratio 1.0 (0.8-1.1) Activated Partial Thromboplast Time 27 SEC (24-38) Sodium Level 136 mmol/L (136-145) Potassium Level 3.2 mmol/L (3.5-5.1) Chloride Level 96 mmol/L (98-107) Carbon Dioxide Level 31 mmol/L (21-32) Anion Gap 9 (6-14) Blood Urea Nitrogen 6 mg/dL (7-20) Creatinine 0.9 mg/dL (0.6-1.0) Estimated GFR (Cockcroft-Gault) 66.0 BUN/Creatinine Ratio 7 (6-20) Glucose Level 116 mg/dL (70-99) Lactic Acid Level 3.6 mmol/L (0.4-2.0) 1.4 mmol/L (0.4-2.0) Calcium Level 8.6 mg/dL (8.5-10.1) Total Bilirubin 2.9 mg/dL (0.2-1.0) Aspartate Amino Transf (AST/SGOT) 91 U/L (15-37) Alanine Aminotransferase (ALT/SGPT) 20 U/L (14-59) Alkaline Phosphatase 112 U/L (46-116) Troponin I Quantitative < 0.017 ng/mL (0.000-0.055) Total Protein 8.0 g/dL (6.4-8.2) Albumin 3.7 g/dL (3.4-5.0) Albumin/Globulin Ratio 0.9 (1.0-1.7) Lipase 56 U/L (73-393) Ethyl Alcohol Level < 10 mg/dL (0-10) Urine Collection Type Unknown Urine Color Sadnie Urine Clarity Clear Urine pH 7.5 (<5.0-8.0) Urine Specific [place] 1.015 (1.000-1.030) Urine Protein 100 mg/dL (NEG-TRACE) Urine Glucose (UA) 100 mg/dL (NEG) Urine Ketones (Stick) Trace mg/dL (NEG) Urine Blood Small (NEG) Urine Nitrite Negative (NEG) Urine Bilirubin Negative (NEG) Urine Urobilinogen Dipstick 1.0 mg/dL (0.2 mg/dL) Urine Leukocyte Esterase Negative (NEG) Urine RBC 6-10 /HPF (0-2) Urine WBC 1-4 /HPF (0-4) Urine Squamous Epithelial Cells Mod /LPF Urine Bacteria Few /HPF (0-FEW) Urine Hyaline Casts Few /HPF Urine Mucus Mod /LPF Urine Opiates Screen Pos (NEG) Urine Methadone Screen Neg (NEG) Urine Barbiturates Neg (NEG) Urine Phencyclidine Screen Neg (NEG) Urine Amphetamine/Methamphetamine Neg (NEG) Urine Benzodiazepines Screen Pos (NEG) Urine Cocaine Screen Neg (NEG) Urine Cannabinoids Screen Neg (NEG) Urine Ethyl Alcohol Neg (NEG) Images Images CXR: Single view of chest obtained. Calcified granuloma left lung. No new region of consolidation. Cardiac silhouette is similar to prior. IMPRESSION: No focal airspace consolidation or edema. CT Head: No intracranial hemorrhage. No midline shift. Basal cisterns patents. Ventricles and sulci are globally prominent. No acute osseous abnormality. Orbits and paranasal sinuses unremarkable. Scattered foci of low attenuation within the white matter. IMPRESSION: 1. No acute intracranial hemorrhage. 2. Scattered regions of low attenuation within the white matter. Non-specific in nature but frequently secondary to chronic small vessel ischemic disease. 3. Prominence of ventricles and sulci which is frequently secondary to age related volume loss. VTE Prophylaxis Ordered VTE Prophylaxis Devices: Yes VTE Pharmacological Prophylaxi: Yes Assessment/Plan Assessment/Plan A/P: Seizure - likely from DT, will place on CIWA scale RUQ pain, vomiting - recurrent Chronic pancreatitis - related to alcohol, still drinking Anemia - stable Elevated LFTs - likely alcoholic viral Hep panel neg 12/2019 Fatty liver, now hepatomegaly GERD - on PPI Hypokalemia - will replace. Check mag FEN - General diet PPX - lovenox, PPI FULL CODE Dispo - inpatient Justicifation of Admission Dx: Justifications for Admission: Justification of Admission Dx: Yes NÉSTOR HENRY MD Jul 05, 2020 08:48
[2020-07-05] MEDS ORDERED: MULTIVIT INFUSN,ADULT 4,VIT K 10 ML, THIAMINE INJ 100 MG, FOLIC ACID INJ 1 MG in IV NOR... IV SCH (09:00)
[2020-07-05] MEDS ORDERED: POTASSIUM CHLORIDE 20 MEQ TABLET.ER. PO ONE (10:00)
--- NOTE | 2020-07-05 10:19 | NUR ---
WILLY following. Discussed with RN. LASHA referral made for ETOH use/abuse. RN reported pt is wanting treatment for ETOH. Naresh (LASHA) will see pt today. [facility] following for self pay status. WILLY will continue to follow. Addendum: 07/05/20 at 1556 by ANANDA AGUILERA Naresh met with pt, pt has hx of anxiety and depression - has been off meds for about a week. Pt will follow with [facility] for an assessment. Per Naresh, pt is uncertain if she can stop drinking, and does not think her drinking is an issue. Pt provided with information on [employer]. Pt cleared to discharge home by LASHA. RN notified.
[2020-07-05 11:00] VITALS: BP 145/100
[2020-07-05] MEDS: POTASSIUM CHLORIDE 10MEQ 100 ML IV SCH ×2 (11:11→12:17)
[2020-07-05] MEDS ORDERED: MAGNESIUM SULFATE 4GM 100 ML IV ONE (11:15)
[2020-07-05] MEDS ORDERED: METOPROLOL TARTRATE 5 MG/5 ML VIAL. IVP ONE (12:45)
[2020-07-05 15:00] VITALS: BP 156/106
[2020-07-05] MEDS ORDERED: MAGNESIUM SULFATE 2GM 50 ML IV ONE (15:30)
[2020-07-05 19:00] VITALS: BP 157/101
[2020-07-05 23:00] VITALS: BP 150/106
[2020-07-06 03:00] VITALS: BP 149/107
[2020-07-06 05:32] LABS: CALCIUM 8.9 mg/dL (8.5-10.1); CREATININE 0.9 mg/dL (0.6-1.0); MAGNESIUM 2.6 mg/dL (1.8-2.4); POTASSIUM 3.2 mmol/L (3.5-5.1)
[2020-07-06 07:00] VITALS: BP 124/81
--- NOTE | 2020-07-06 08:21 | PDOC ---
[employer] PROGRESS NOTE Date of Service DOS: DATE: 07/06/20 TIME: 08:20 Chief Complaint Chief Complaint A/P: Seizure - likely from DT, will place on CIWA scale RUQ pain, vomiting - recurrent Chronic pancreatitis - related to alcohol, still drinking Anemia - stable Elevated LFTs - likely alcoholic viral Hep panel neg 12/2019 Fatty liver, now hepatomegaly GERD - on PPI Hypokalemia - will replace. Check mag FEN - General diet PPX - lovenox, PPI FULL CODE Dispo - inpatient History of Present Illness History of Present Illness Ms Franco is a 49yo F w/ PMHx PSVT, COPD, anxiety, GERD, pancreatitis, anemia, ETOH abuse, smoker admitted through ED for seizure at home. Notes she has been eating out a lot lately and had some reheated food 3 days prior to ED presentation and had some nausea and vomiting diarrhea at that point and stopped drinking her normal half pint to a full pint of liquor per day and had been having some shaking and some visual hallucinations that she noted to her daughter. She was then noted with tonic-clonic seizure and loss of bladder function, no loss of bowel function. Brought in through ED with CT head negative for acute abnormality and chest x-ray clear EKG NSR. Labs significant for K of 3.2 lactate of 3.6 AST 91 bilirubin 2.9 platelets 59 urine drug screen positive for opioids and benzodiazepines ethanol level was 0. Due to her electrolyte abnormalities and new seizure she was admitted for further treatment. K 3.2 this morning. Mag 2.6. No further seizure activity Vitals/I&O Vitals/I&O: Vital Signs Date Time Temp Pulse Resp B/P (MAP) Pulse Ox O2 Delivery O2 Flow Rate FiO2 07/06/20 03:00 99.5 111 24 149/107 (121) 100 Room Air 99.5 I & O 07/05/20 07/05/20 07/06/20 15:00 23:00 07:00 Intake Total 260 ml Output Total 3 ml Balance -3 ml 260 ml Physical Exam General: Alert, Cooperative, mild distress Lungs: Clear Extremities: No clubbing, No cyanosis, No edema, Normal pulses, No tenderness/swelling Skin: No rashes, No breakdown, No significant lesion Labs Labs: Laboratory Tests Test 07/06/20 04:35 Sodium Level 135 mmol/L (136-145) Potassium Level 3.2 mmol/L (3.5-5.1) Chloride Level 97 mmol/L (98-107) Carbon Dioxide Level 27 mmol/L (21-32) Anion Gap 11 (6-14) Blood Urea Nitrogen 10 mg/dL (7-20) Creatinine 0.9 mg/dL (0.6-1.0) Estimated GFR (Cockcroft-Gault) 66.0 Glucose Level 75 mg/dL (70-99) Calcium Level 8.9 mg/dL (8.5-10.1) Magnesium Level 2.6 mg/dL (1.8-2.4) Assessment and Plan Assessmemt and Plan Problems Medical Problems: (1) Alcohol related seizure Status: Acute (2) Alcoholic gastritis Status: Acute (3) Dehydration Status: Acute (4) Delirium tremens Status: Acute Comment Review of Relevant I have reviewed the following items any (where applicable) has been applied. Medications: Current Medications Medications (Trade) Dose Ordered Sig/Alverto Route PRN Reason Start Time Stop Time Status Last Admin Dose Admin Multivitamins 10 ml/Thiamine HCl 100 mg/Folic Acid 1 mg/Sodium Chloride 1,011.2 ml @ 100 mls/ hr DAILY IV 07/05/20 09:00 07/09/20 19:07 07/05/20 09:34 Lorazepam (Ativan) 2 mg PRN Q1HR PRN PO For CIWA 8-07/05/20 08:45 07/06/20 01:46 Acetaminophen (Tylenol) 650 mg PRN Q6HRS PRN PO MILD PAIN / TEMP > 100.3'F 07/05/20 08:45 07/05/20 09:34 Potassium Chloride/Water 100 ml @ 100 mls/hr Q1H IV 07/05/20 10:00 07/05/20 11:59 DC 07/05/20 12:17 Potassium Chloride (Klor-Con) 40 meq 1X ONCE PO 07/05/20 10:00 07/05/20 10:01 DC 07/05/20 11:11 Magnesium Sulfate 100 ml @ 25 mls/hr 1X ONCE IV 07/05/20 11:15 07/05/20 15:14 DC 07/05/20 14:20 Metoprolol Tartrate (Lopressor Vial) 2.5 mg 1X ONCE IVP 07/05/20 12:45 8/17/20 12:49 DC 07/05/20 12:48 Magnesium Sulfate 50 ml @ 25 mls/hr 1X ONCE IV 07/05/20 15:30 07/05/20 17:29 DC 07/05/20 16:37 Justicifation of Admission Dx: Justifications for Admission: Justification of Admission Dx: Yes NÉSTOR HENRY MD Jul 06, 2020 08:21
[2020-07-06] MEDS ORDERED: LORA-434 PO (08:23)
[2020-07-06] MEDS ORDERED: POTASSIUM CHLORIDE 20 MEQ TABLET.ER. PO ONE (08:30)
--- NOTE | 2020-07-06 09:15 | NUR ---
Discharge Note: Patient was discharged home with self care. Patients IV was discontinued without any complications per BONITA. Patient was given discharge summary/instructions, follow-ups, and educational material. Patients prescription was sent to patients preferred pharmacy. Patient did not have any further questions or concerns. Patient was taken to the main entrance via wheelchair with all personal belongings, accompanied by BONITA Blake, where her daughter was waiting for her to take her home.
--- NOTE | 2020-07-06 09:38 | PDOC3 ---
Discharge Summary Visit Information Date of Admission: Jul 05, 2020 Date of Discharge: Jul 06, 2020 Admitting Diagnosis: Alcohol related seizures Final Diagnosis Problems Medical Problems: (1) Alcohol related seizure Status: Acute (2) Alcoholic gastritis Status: Acute (3) Dehydration Status: Acute (4) Delirium tremens Status: Acute Brief Hospital Course Allergies Allergies Coded Allergies Type Severity Reaction Last Updated Verified Iodinated Contrast Media Allergy Severe 10/08/19 Yes Sulfa (Sulfonamide Antibiotics) Allergy Intermediate 10/08/19 Yes erythromycin base Allergy Intermediate 10/08/19 Yes tramadol Allergy Intermediate 11/13/19 Yes Vital Signs Vital Signs Date Time Temp Pulse Resp B/P (MAP) Pulse Ox O2 Delivery O2 Flow Rate FiO2 07/06/20 07:00 97.9 111 18 124/81 (95) 100 Room Air 97.9 Lab Results Laboratory Tests Test 07/05/20 00:38 07/05/20 00:52 07/05/20 05:12 07/06/20 04:35 White Blood Count 6.6 x10^3/uL (4.0-11.0) Red Blood Count 3.85 x10^6/uL (3.50-5.40) Hemoglobin 12.6 g/dL (12.0-15.5) Hematocrit 37.6 % (36.0-47.0) Mean Corpuscular Volume 98 fL (79-100) Mean Corpuscular Hemoglobin 33 pg (25-35) Mean Corpuscular Hemoglobin Concent 33 g/dL (31-37) Red Cell Distribution Width 14.6 % (11.5-14.5) Platelet Count 59 x10^3/uL (140-400) Neutrophils (%) (Auto) 71 % (31-73) Lymphocytes (%) (Auto) 15 % (24-48) Monocytes (%) (Auto) 13 % (0-9) Eosinophils (%) (Auto) 0 % (0-3) Basophils (%) (Auto) 1 % (0-3) Neutrophils # (Auto) 4.7 x10^3/uL (1.8-7.7) Lymphocytes # (Auto) 1.0 x10^3/uL (1.0-4.8) Monocytes # (Auto) 0.9 x10^3/uL (0.0-1.1) Eosinophils # (Auto) 0.0 x10^3/uL (0.0-0.7) Basophils # (Auto) 0.0 x10^3/uL (0.0-0.2) Prothrombin Time 13.1 SEC (11.7-14.0) Prothromb Time International Ratio 1.0 (0.8-1.1) Activated Partial Thromboplast Time 27 SEC (24-38) Sodium Level 136 mmol/L (136-145) 135 mmol/L (136-145) Potassium Level 3.2 mmol/L (3.5-5.1) 3.2 mmol/L (3.5-5.1) Chloride Level 96 mmol/L (98-107) 97 mmol/L (98-107) Carbon Dioxide Level 31 mmol/L (21-32) 27 mmol/L (21-32) Anion Gap 9 (6-14) 11 (6-14) Blood Urea Nitrogen 6 mg/dL (7-20) 10 mg/dL (7-20) Creatinine 0.9 mg/dL (0.6-1.0) 0.9 mg/dL (0.6-1.0) Estimated GFR (Cockcroft-Gault) 66.0 66.0 BUN/Creatinine Ratio 7 (6-20) Glucose Level 116 mg/dL (70-99) 75 mg/dL (70-99) Lactic Acid Level 3.6 mmol/L (0.4-2.0) 1.4 mmol/L (0.4-2.0) Calcium Level 8.6 mg/dL (8.5-10.1) 8.9 mg/dL (8.5-10.1) Magnesium Level 1.2 mg/dL (1.8-2.4) 2.6 mg/dL (1.8-2.4) Total Bilirubin 2.9 mg/dL (0.2-1.0) Aspartate Amino Transf (AST/SGOT) 91 U/L (15-37) Alanine Aminotransferase (ALT/SGPT) 20 U/L (14-59) Alkaline Phosphatase 112 U/L (46-116) Troponin I Quantitative < 0.017 ng/mL (0.000-0.055) Total Protein 8.0 g/dL (6.4-8.2) Albumin 3.7 g/dL (3.4-5.0) Albumin/Globulin Ratio 0.9 (1.0-1.7) Lipase 56 U/L (73-393) Ethyl Alcohol Level < 10 mg/dL (0-10) Urine Collection Type Unknown Urine Color Sandie Urine Clarity Clear Urine pH 7.5 (<5.0-8.0) Urine Specific [place] 1.015 (1.000-1.030) Urine Protein 100 mg/dL (NEG-TRACE) Urine Glucose (UA) 100 mg/dL (NEG) Urine Ketones (Stick) Trace mg/dL (NEG) Urine Blood Small (NEG) Urine Nitrite Negative (NEG) Urine Bilirubin Negative (NEG) Urine Urobilinogen Dipstick 1.0 mg/dL (0.2 mg/dL) Urine Leukocyte Esterase Negative (NEG) Urine RBC 6-10 /HPF (0-2) Urine WBC 1-4 /HPF (0-4) Urine Squamous Epithelial Cells Mod /LPF Urine Bacteria Few /HPF (0-FEW) Urine Hyaline Casts Few /HPF Urine Mucus Mod /LPF Urine Opiates Screen Pos (NEG) Urine Methadone Screen Neg (NEG) Urine Barbiturates Neg (NEG) Urine Phencyclidine Screen Neg (NEG) Urine Amphetamine/Methamphetamine Neg (NEG) Urine Benzodiazepines Screen Pos (NEG) Urine Cocaine Screen Neg (NEG) Urine Cannabinoids Screen Neg (NEG) Urine Ethyl Alcohol Neg (NEG) Laboratory Tests Test 07/06/20 04:35 Sodium Level 135 mmol/L (136-145) Potassium Level 3.2 mmol/L (3.5-5.1) Chloride Level 97 mmol/L (98-107) Carbon Dioxide Level 27 mmol/L (21-32) Anion Gap 11 (6-14) Blood Urea Nitrogen 10 mg/dL (7-20) Creatinine 0.9 mg/dL (0.6-1.0) Estimated GFR (Cockcroft-Gault) 66.0 Glucose Level 75 mg/dL (70-99) Calcium Level 8.9 mg/dL (8.5-10.1) Magnesium Level 2.6 mg/dL (1.8-2.4) Brief Hospital Course Ms Franco is a 49yo F w/ PMHx PSVT, COPD, anxiety, GERD, pancreatitis, anemia, ETOH abuse, smoker admitted through ED for seizure at home. Notes she has been eating out a lot lately and had some reheated food 3 days prior to ED presentation and had some nausea and vomiting diarrhea at that point and stopped drinking her normal half pint to a full pint of liquor per day and had been having some shaking and some visual hallucinations that she noted to her daughter. She was then noted with tonic-clonic seizure and loss of bladder function, no loss of bowel function. Brought in through ED with CT head negative for acute abnormality and chest x-ray clear EKG NSR. Labs significant for K of 3.2 lactate of 3.6 AST 91 bilirubin 2.9 platelets 59 urine drug screen positive for opioids and benzodiazepines ethanol level was 0. Due to her electrolyte abnormalities and new seizure she was admitted for further treatment. K 3.2 this morning. Mag 2.6. No further seizure activity Problem list: Seizure - likely from DT, will place on CIWA scale RUQ pain, vomiting - recurrent Chronic pancreatitis - related to alcohol, still drinking Anemia - stable Elevated LFTs - likely alcoholic viral Hep panel neg 12/2019 Fatty liver, now hepatomegaly GERD - on PPI Hypokalemia - will replace. Check mag Greater than 30 minutes spent on d/c Discharge Information Condition at Discharge: Improved Follow Up: Weeks (1) Disposition/Orders: D/C to Home Scheduled Albuterol Sulfate (Ventolin Hfa Inhaler) 18 Gm Hfa.aer.ad, 2 PUFF INH QID for FOR ASTHMA, #1 Ref 0 Prescribed by: ANDREW CHRISTENSEN MD on 11/13/19 0920 Metoprolol Tartrate (Metoprolol Tartrate) 25 Mg Tablet, 25 MG PO BID for htn for 30 Days, #60 Prescribed by: NASEEM QUINTERO MD on 03/13/20 1005 Omeprazole (Omeprazole) 40 Mg Capsule.dr, 1 CAP PO DAILY for GERD, #30 Ref 3 (Reported) Entered as Reported by: DELLA LUIS on 01/15/20 0425 Scheduled PRN Lorazepam (Ativan) 1 Mg Tablet, 2 MG PO PRN Q1HR PRN for ALCOHOL WITHDRAWAL for 3 Days, #6 Prescribed by: NÉSTOR HENRY MD on 07/06/20 0824 Ondansetron Hcl (Zofran) 8 Mg Tablet, 8 MG PO BID PRN for NAUSEA/VOMITING, (Reported) Entered as Reported by: CANDIS BECKETT RN on 10/08/19 1739 [Nicotine 21MG] 1 PATCH PATCH, 1 PATCH TD PRN DAILY PRN for SMOKING CESSATION for 30 Days, #30 Prescribed by: NASEEM QUINTERO MD on 03/13/20 1005 Discontinued Medications Alprazolam (Xanax) 0.5 Mg Tablet, 1 TAB PO PRN PRN for ANXIETY / AGITATION, #90 (Reported) Entered as Reported by: SANTY LIM on 03/11/20 1642 Justicifation of Admission Dx: Justifications for Admission: Justification of Admission Dx: Yes NÉSTOR HNERY MD Jul 06, 2020 09:38
--- NOTE | 2020-07-06 10:06 | NUR ---
SW following. Discussed with RN, discharge order for home with self care. RN advised no SW needs.
== END 2020-07-06 09:15 | disposition home or self-care (01) | DRG 101 ==
LOC: ER 23:29 → 5 NORTH 07-05 04:03
PROVIDERS: ADMIT Internal Medicine; ATTEND Internal Medicine
DX: G40.89 Other seizures (principal); F10.231 Alcohol dependence with withdrawal delirium; K86.1 Other chronic pancreatitis; E87.6 Hypokalemia; D64.9 Anemia, unspecified; E86.0 Dehydration; F17.210 Nicotine dependence, cigarettes, uncomplicated; J44.9 Chronic obstructive pulmonary disease, unspecified; K21.9 Gastro-esophageal reflux disease without esophagitis; K29.20 Alcoholic gastritis without bleeding; K76.0 Fatty (change of) liver, not elsewhere classified; Z82.49 Family history of ischemic heart disease and other diseases of the circulatory system; Z98.51 Tubal ligation status; F41.9 Anxiety disorder, unspecified; Z88.8 Allergy status to other drugs, medicaments and biological substances; Z88.2 Allergy status to sulfonamides; Y90.8 Blood alcohol level of 240 mg/100 ml or more
CPT/HCPCS: 36415; 70450; 71045; 80048; 80053; 80307; 81001; 83605; 83690; 83735; 84484; 85025; 85610; 85730; 87040; 93005; 96361; 96374; 99285; G0480; J2060; J3411; J3475; J3480; J3490; J7030; G0378